=== PATIENT | male | born 1945 | race Caucasian/White ===

== ENCOUNTER 2022-06-16 17:57 | Emergency (ER) | payer MEDICARE, MEDICAID, SELFPAY ==
--- NOTE | ~2022-06-16 | XR_ITS ---
EXAMINATION: XR FOOT, LEFT CLINICAL INFORMATION: Question osteomyelitis of the lateral aspect of the left foot COMPARISON: None available TECHNIQUE: AP, lateral, and oblique views of the left foot. FINDINGS: Status post prior amputations of the first and second toes, partial amputation of the third toe to the distal portion of the proximal phalanx and partial amputation of the fourth toe to the middle phalanx. Prior partially amputation of the fifth ray to the mid metatarsal shaft. Soft tissue wound/ulcer is seen along the lateral aspect of the forefoot adjacent to the fourth MTP joint. No tracking soft tissue gas or radiodense foreign body. No aggressive osseous destruction, erosions, or periostitis to suggest a advanced acute osteomyelitis via plain radiography. Normal alignment of the tarsometatarsal joints. No acute fracture or dislocation. Vascular calcifications noted. XR/XR foot LT 2V IMPRESSION: 1. Soft tissue wound/ulcer in the lateral aspect of the forefoot adjacent to the fourth MTP joint. No radiographic evidence of advanced acute osteomyelitis. If continued high clinical concern for osteomyelitis, suggest MRI for more sensitive assessment or alternatively radiographic follow-up. 2. Postsurgical changes of the forefoot as described.
[2022-06-16 18:10] VITALS: BP 131/67; PULSE 77; RESP 16; TEMP 37.1; O2SAT 99; BMI 31.5
[2022-06-16 18:14] LABS: Glucose, Whole Blood 225 mg/dL (60-115)
[2022-06-16 18:16] VITALS: BP 131/67; PULSE 77; RESP 16; TEMP 37.1; O2SAT 99
--- NOTE | 2022-06-16 19:07 | PC.NURSE ---
Rn took over care for pt. pt is A& O x 4 agrees to getting blood work done. biomass plant technician Yosi agreeable to obtain blood work.
--- NOTE | 2022-06-16 19:09 | ED_ITS ---
HPI - General Adult General Chief complaint: General Medical Stated complaint: HYPOGYLCEMIA Source: patient Mode of arrival: EMS Limitations: no limitations History of Present Illness HPI narrative: Patient has the emergency room home home via EMS. Patient reports living alone, has [facility] services that cm daily. Patient reports that he recently had a change to his metformin, unsure if he is taking his dose correct. EMS was called for hyperglycemia. Patient was scared because his blood glucose was 225. Patient also complaining of a foot ulcer on his left foot. Patient states that he has caretakers will do dressed changes. Related Data Allergies Allergy/AdvReac Type Severity Reaction Status Date / Time No Known Allergies Allergy Verified 06/16/22 18:08 Review of Systems Review of Systems: Constitutional : No Weight loss, No Fever, No Chills, No Night Sweats, No Fatigue, No Malaise ENT/Mouth : No Hearing loss, No Ear Pain, No Nasal Congestion, No Sinus Pain, No Hoarseness, No sore throat, No Rhinorrhea, No Swallowing Difficulty Eyes: No Eye Pain, No Swelling, No Redness, No Foreign Body, No Discharge, No Vision Changes Cardiovascular : No Chest Pain, No SOB, No Dyspnea on Exertion, No Orthopnea, No Edema, No Palpitations Respiratory : No Cough, No Sputum, No Wheezing, No Smoke Exposure, No Dyspnea Gastrointestinal : No Nausea, No Vomiting, No Diarrhea, No Constipation, No abdominal Pain, No Hematochezia, No Melena Genitourinary : no irregular bleeding, No Dysuria, No Urinary Frequency, No Hematuria, No Urinary Incontinence, No Urgency, No Flank Pain, No Urinary Flow Changes, No Hesitancy Musculoskeletal : No joint pain, No Myalgias, No Joint Swelling Skin : Complaining of a nonhealing ulcer on the left foot Neuro : No Weakness, No Numbness, No Paresthesias, No Loss of Consciousness, No Dizziness, No Headache Psych : No Anxiety/Panic, No Depression, No SI/HI/AH/VH, No Social Issues, Heme/Lymph: No Bruising, No Bleeding,No Lymphadenopathy Endocrine : No Polyuria, No Polydipsia, No Temperature Intolerance PMF Past Medical History Medical History (Updated 06/16/22 @ 23:42 by Yelena Hancock MD) Chronic venous stasis Type 2 diabetes mellitus Social History Social History Advance Directives: Yes Advance Directives Information Provided: No Advance Directives on File: No Physical Exam ED Vital Signs: Vital Signs - 24 hr 06/16/22 18:10 06/16/22 18:16 06/16/22 21:00 Temperature 98.8 F 98.8 F 98.6 F Pulse Rate 77 77 76 Respiratory Rate 16 16 16 Blood Pressure 131/67 131/67 124/50 L Pulse Oximetry 99 99 97 Oxygen Delivery Method Room Air Room Air Room Air 06/16/22 22:51 Temperature 98.8 F Pulse Rate 73 Respiratory Rate 16 Blood Pressure 122/66 Pulse Oximetry 97 Oxygen Delivery Method Room Air BMI result Body Mass Index 31.5 Const Other: Appearance: Alert. Oriented X3. No acute distress. Eyes: Pupils equal, round and reactive to light. ENT: Pharynx normal. Neck: Normal inspection. Neck supple. No lymph nodes noted. No crepitus CVS: Normal heart rate and rhythm. Pulses normal. Normal S1 and S2 Respiratory: No respiratory distress. Breath sounds normal. No Wheezing. No rales Abdomen: Soft and nontender. No rigidity. No distention. Skin: Skin warm and dry. See extremities below Extremities: No lower extremity edema. There is a nonhealing ulcer on the lateral aspect of the left foot. 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 No motor deficit. No sensory deficit. Moving all extremities. No slurred speech. CN 2 through 12 grossly intact Psych: calm, cooperative, normal affect Course Course Course Narrative: -patient's blood glucose 225 on arrival, patient is symptomatic -this is a nonhealing ulcer on the left side of the foot. X-rays and labs pending -patient states that he absolutely refuses to go to any detention facility -sign out given to Dr. Franco Medical Decision Making Medical Decision Making [facility] Narrative: -patient's point of care 182 without any treatment. -patient is confused about taking his medications, states he does not have enough care at home. -patient concerned that at this time, 23:40, he does not have anyone to help him at home -patient will stay in the ED, case management consult pending tomorrow -physician observation started at 23:40 Differential Diagnosis Differential Diagnoses: The differential diagnosis associated with the presentation includes (Hyperglycemia) Lab Data [facility] Lab Attestation statement: I reviewed the patient's lab results. 06/16/22 19:29 06/16/22 19:29 Labs: Lab Results 06/16/22 06/16/22 06/16/22 Range/Units 18:05 19:29 19:29 WBC 6.2 (4.8-10.8) X10*3/uL RBC 3.08 L (4.60-5.80) X10*6/uL Hgb 9.4 L (14.0-18.0) g/dl Hct 28.3 L (42.0-52.0) % MCV 91.9 (80.0-98.0) fL MCH 30.5 (27.0-33.0) pg MCHC 33.2 (31.0-36.0) g/dl RDW 14.6 (11.0-16.0) % Plt Count 191 (160-400) X10*3/uL MPV 8.9 L (9.4-12.4) fL Immature Gran % (Auto) 0.3 (0.0-0.4) % Neut % (Auto) 73.9 H (45-73) % Lymph % (Auto) 14.5 L (20-40) % [place] % (Auto) 11.1 H (2-11) % Eos % (Auto) 0.0 (0-4) % Baso % (Auto) 0.2 (0-2) % Lymph # (Auto) 0.9 L (1.2-4.9) X10*3/uL [place] # (Auto) 0.7 (0.1-1.2) X10*3/uL Eos # (Auto) 0.0 (0.0-0.4) X10*3/uL Baso # (Auto) 0.0 (0.0-0.2) X10*3/uL Abs Immat Gran (auto) 0.02 (0.00-0.03) X10*3/uL Absolute Neuts (auto) 4.6 (2.0-8.3) x10*3/uL Absolute Nucleated RBC 0.000 (0.0-0.012) X10*3/uL Nucleated RBC % (auto) 0.0 (0.0-0.2) /100WBC Sodium 136 (135-145) mmol/L Potassium 5.0 (3.3-5.1) mmol/L Chloride 98 (96-108) mmol/L Carbon Dioxide 30 H (22-29) mmol/L Anion Gap 13 (12-20) BUN 25 H (9-16) mg/dL Creatinine 0.96 (0.5-1.4) mg/dL Estim Creat Clear Calc 76.3 Estimated GFR > 60 POC Glucose 225 H (60-115) mg/dL Random Glucose 240 H (60-115) mg/dL Calcium 9.0 (8.4-10.2) mg/dL Total Bilirubin 0.5 (0.0-1.0) mg/dL Direct Bilirubin 0.2 (0.0-0.5) mg/dL AST 12 (5-37) U/L ALT 8 (0-40) U/L Alkaline Phosphatase 63 (39-117) U/L Total Protein 6.4 L (6.5-8.0) g/dL Albumin 3.4 L (3.5-5.0) g/dL Urine Color Urine Appearance Urine pH (5.0-9.0) Ur Specific [place] (1.005-1.025) Urine Protein (Neg-Trace) mg/dL Urine Glucose (UA) (Negative) mg/dL Urine Ketones (Negative) mg/dL Urine Blood (Negative) Urine Nitrite (Negative) Ur Leukocyte Esterase (Negative) 06/16/22 06/16/22 Range/Units 21:02 23:09 WBC (4.8-10.8) X10*3/uL RBC (4.60-5.80) X10*6/uL Hgb (14.0-18.0) g/dl Hct (42.0-52.0) % MCV (80.0-98.0) fL MCH (27.0-33.0) pg MCHC (31.0-36.0) g/dl RDW (11.0-16.0) % Plt Count (160-400) X10*3/uL MPV (9.4-12.4) fL Immature Gran % (Auto) (0.0-0.4) % Neut % (Auto) (45-73) % Lymph % (Auto) (20-40) % [place] % (Auto) (2-11) % Eos % (Auto) (0-4) % Baso % (Auto) (0-2) % Lymph # (Auto) (1.2-4.9) X10*3/uL [place] # (Auto) (0.1-1.2) X10*3/uL Eos # (Auto) (0.0-0.4) X10*3/uL Baso # (Auto) (0.0-0.2) X10*3/uL Abs Immat Gran (auto) (0.00-0.03) X10*3/uL Absolute Neuts (auto) (2.0-8.3) x10*3/uL Absolute Nucleated RBC (0.0-0.012) X10*3/uL Nucleated RBC % (auto) (0.0-0.2) /100WBC Sodium (135-145) mmol/L Potassium (3.3-5.1) mmol/L Chloride (96-108) mmol/L Carbon Dioxide (22-29) mmol/L Anion Gap (12-20) BUN (9-16) mg/dL Creatinine (0.5-1.4) mg/dL Estim Creat Clear Calc Estimated GFR POC Glucose 182 H (60-115) mg/dL Random Glucose (60-115) mg/dL Calcium (8.4-10.2) mg/dL Total Bilirubin (0.0-1.0) mg/dL Direct Bilirubin (0.0-0.5) mg/dL AST (5-37) U/L ALT (0-40) U/L Alkaline Phosphatase (39-117) U/L Total Protein (6.5-8.0) g/dL Albumin (3.5-5.0) g/dL Urine Color Yellow Urine Appearance Clear Urine pH 5.5 (5.0-9.0) Ur Specific [place] 1.015 (1.005-1.025) Urine Protein Negative (Neg-Trace) mg/dL Urine Glucose (UA) 100 H (Negative) mg/dL Urine Ketones Negative (Negative) mg/dL Urine Blood Negative (Negative) Urine Nitrite Negative (Negative) Ur Leukocyte Esterase Negative (Negative) Discharge Plan Discharge Clinical Impression: Type 2 diabetes mellitus Patient Disposition: Still a Patient
[2022-06-16 19:32] LABS: MANUAL DIFF FLAG NO
[2022-06-16 19:34] LABS: Basophils Percent Auto 0.2 % (0-2); Hematocrit 28.3 % (42.0-52.0); Hemoglobin 9.4 g/dl (14.0-18.0); Imm Gran Abs Auto 0.02 X10*3/uL (0.00-0.03); Imm Gran Pct Auto 0.3 % (0.0-0.4); Lymphocytes Absolute Auto 0.9 X10*3/uL (1.2-4.9); Lymphocytes Percent Auto 14.5 % (20-40); Mean Corpuscular HGB Conc 33.2 g/dl (31.0-36.0); Mean Corpuscular Hemoglobin 30.5 pg (27.0-33.0); Mean Corpuscular Volume 91.9 fL (80.0-98.0); Mean Platelet Volume 8.9 fL (9.4-12.4); Monocytes Absolute Auto 0.7 X10*3/uL (0.1-1.2); Monocytes Percent Auto 11.1 % (2-11); Neutrophils Absolute Auto 4.6 x10*3/uL (2.0-8.3); Neutrophils Percent Auto 73.9 % (45-73); Platelet Count 191 X10*3/uL (160-400); Red Blood Count 3.08 X10*6/uL (4.60-5.80); Red Cell Distribution Width 14.6 % (11.0-16.0); White Blood Count 6.2 X10*3/uL (4.8-10.8)
[2022-06-16 19:49] LABS: Alanine Aminotransferase 8 U/L (0-40); Albumin Level 3.4 g/dL (3.5-5.0); Alkaline Phosphatase 63 U/L (39-117); Anion Gap 13 (12-20); Aspartate Amino Transferase 12 U/L (5-37); Bilirubin Direct 0.2 mg/dL (0.0-0.5); Bilirubin Total 0.5 mg/dL (0.0-1.0); Blood Urea Nitrogen 25 mg/dL (9-16); Carbon Dioxide 30 mmol/L (22-29); Chloride 98 mmol/L (96-108); Creatinine Clr Calc Pharmacy 76.3; Estimated Glomerular Filt Rate > 60; Glucose Random 240 mg/dL (60-115); Sodium 136 mmol/L (135-145); Total Protein 6.4 g/dL (6.5-8.0)
[2022-06-16 21:00] VITALS: BP 124/50; PULSE 76; RESP 16; TEMP 37; O2SAT 97
[2022-06-16 21:26] LABS: Appearance Urine Clear; Color Urine Yellow; Glucose Urine UA 100 mg/dL (Negative); Leukocyte Esterase Urine Negative (Negative); Nitrite Urine Negative (Negative); PH 5.5 (5.0-9.0); Specific Gravity - Urine 1.015 (1.005-1.025); Urine Blood Negative (Negative); Urine Ketones Negative (Negative); Urine Protein Negative (Neg-Trace)
[2022-06-16 22:51] VITALS: BP 122/66; PULSE 73; RESP 16; TEMP 37.1; O2SAT 97
[2022-06-16 23:13] LABS: Glucose, Whole Blood 182 mg/dL (60-115)
[2022-06-17] VITALS (7 sets, daily range): BP systolic 113–135; BP diastolic 50–65; PULSE 65–82; RESP 14–18; TEMP 36.5–37.2; O2SAT 97–98
--- NOTE | 2022-06-17 08:14 | PC.NURSE ---
PT ASKING TO GO HOME. PT WAS INCONTINENT OF URINE, CHANGED AND REPOSITIONED. AWAITING BREAKFAST TRAY
[2022-06-17 09:17] LABS: Influenza A PCR NEGATIVE (Negative); Influenza B PCR NEGATIVE (Negative); Resp Syncy Virus RNA Qual PCR NEGATIVE (Negative); SARS COV2 PCR INHOUSE NEGATIVE (Negative)
[2022-06-17 10:03] LABS: Glucose, Whole Blood 127 mg/dL (60-115)
--- NOTE | 2022-06-17 10:22 | PC.NURSE ---
pt sitting up eating breakfast. repositioned
--- NOTE | 2022-06-17 10:27 | PHA.MEDREC ---
Pharmacy Consult ? Medication Reconciliation Pharmacy has completed the medication reconciliation. Patient noted he takes metformin 1000 mg bid, but also seems to be a bit confused? RX for 500 mg ER daily and last filled in December. He said he stopped Glipizide since it gave him low BG. Will make md aware of metformin difference
--- NOTE | 2022-06-17 10:30 | PHA.MEDREC ---
Pharmacy Consult ? Medication Reconciliation Pharmacy has completed the medication reconciliation. update , per list metformin 1000 mg, list from pharmacy? pt reports not taking glipizide due to low blood sugar.
[2022-06-17 13:34] LABS: Glucose, Whole Blood 135 mg/dL (60-115)
--- NOTE | 2022-06-17 13:59 | PC.NURSE ---
pt repositioned for lunch
--- NOTE | 2022-06-17 15:11 | MHC.CM.ED ---
Received case management consult overnight. Patient came to the ER due to complaints of low blood sugar. Work up essentially negative. Physical therapy eval completed. 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 Met with patient in regards to discharge planning. Patient lives alone. Patient was discharged from [facility] on 06/09 with Bonita LOZADA. Patient has some health at home. PCP verified. Copy of HCP obtained from [facility]. Patient originally not interested in returning to rehab. Wanted to return home. Patient's HCP is her niece, Lorraine. T/w spoke with Lorraine via telephone at [phone]. Lorraine conferenced patient's daughter, Julianne into the call. Both are aware physical therapy is recommending rehab again and patient is declining to go. Both Julianne and Lorraine feel patient would benefit from STR but understand patient has the capacity to make his own decisions and will agree with whatever patient decides. Lorraine is requesting T/W ask patient if he would willing to go to her house upon discharge. T/W spoke with patient. Patient continues to decline rehab. Also declines going to Lorraine's house. Attempted to notify Lorraine via telephone at [phone]. Patient will return home. Transportation arranged via [employer]. [facility] with chart. Patient, Andrey MCKEON and Cynthia JOHNS aware. Continue to monitor for d/c needs.
--- NOTE | 2022-06-17 15:22 | PC.NURSE ---
pt refusing rehab placement. he is alos unable to self transfer and used urinal independently. he is able to feed himself. his chronic left foot wound was dressed with a nonstick dsd.
--- NOTE | 2022-06-17 15:56 | PC.NURSE ---
Large BM , void approx 250ml
--- NOTE | 2022-06-17 17:03 | PC.NURSE ---
EMS HERE FOR TRANSPORT HOME PT REFUSING TO GO STATING NO ONE IS THERE TO CARE FOR HIM AT THIS TIME. AND THAT HE HAS NO MEDICATION. IT WAS OFFERED TO THE PATIENT TO STAY THE NIGHT AND READDRESS NEEDS IN THE AM. PROVIDER AND CASE MANAGEMENT AT THE BEDSIDE
--- NOTE | 2022-06-17 17:44 | PC.NURSE ---
PT WAS PLACED IN A HOSPITAL BED FOR OVERNIGHT STAY
[2022-06-17] MEDS: metFORMIN HCl ER 500 MG TAB.ER.24H 1000 MG PO (17:59)
[2022-06-17] MEDS: Finasteride 5 MG TABLET PO (18:01)
[2022-06-17] MEDS: Multivitamin TABLET 1 TAB PO (18:02)
[2022-06-17] MEDS: Thiamine HCL 100 MG TABLET PO (18:02)
[2022-06-17] MEDS: polyethylene glycoL 3350 17 GM POWD.PACK PO (18:03)
[2022-06-17 18:30] LABS: Glucose, Whole Blood 246 mg/dL (60-115)
--- NOTE | 2022-06-17 19:41 | PC.NURSE ---
assumed care of pt requesting food- diabetic diet dinner tray was not brought in was present when pt refused CT scan will CTM and confrim with provider to make sure food can be provided at this time since pt had pending imaging
--- NOTE | 2022-06-17 20:25 | PC.NURSE ---
food and drink provided
--- NOTE | 2022-06-17 20:53 | MHC.CM.ED ---
Addendum entered by Ale Eng 06/17/22 21:20: [facility] updated to expect discharge home 06/18. Will update them tomorrow with d/c time. Original Note: [facility] arrived to transport patient home with services. Pt refused transport. CM, RN and Provider with patient. Pt confused. States he won't have any help at this hour (it was 1700) and he won't have his medications. Pt refused for CM to call his niece Lorraine, saying she cares for drug addicts and cannot help him. Pt not sure where he is, thinks he is in a fci. Pt was d/c from SNF on 06/09 with services. Pt then told BLS crew to just take him home and stop at the liquor store for some tequila. ? sun downing. CM, RN and BLS crew not comfortable with transport. Cynthia JOHNS aware. CM called [facility] to assess patient services and to discuss ? sundowning. Pt has services -W-, 3 hours in the morning and 3 hours at dinner time. They assist with meal prep, housekeeping, personal care and bathing. Their services are approved by the [facility]They have been seeing patient since his previous D/C for SNF. No history in the notes of confusion or sundowning./ Pt also is active with [facility] for wound care. [facility] [place] contact [phone]. Will re-assess patient in am for discharge.[facility] will need to be called. D/C earlier in day may be more beneficial. Pt refused Head CT, saying that radiation causes cancer. CM will follow for d/c planning.
[2022-06-17] MEDS: Ferrous Sulfate 324 MG TABLET.DR PO (21:15)
[2022-06-17] MEDS: Tamsulosin HCL 0.4 MG CAPSULE PO (21:15)
[2022-06-17] MEDS: Atorvastatin Calcium 10 MG TABLET PO (21:15)
--- NOTE | 2022-06-17 21:42 | PC.NURSE ---
vs to be assessed Q12HRS per DR Hancock
--- NOTE | 2022-06-18 00:11 | PC.NURSE ---
pt denies pain, resting quietly no apparent distress
[2022-06-18 04:41] VITALS: BP 98/58; PULSE 80; RESP 18; O2SAT 98
[2022-06-18 04:47] LABS: Glucose, Whole Blood 169 mg/dL (60-115)
[2022-06-18 07:01] LABS: Glucose, Whole Blood 155 mg/dL (60-115)
--- NOTE | 2022-06-18 07:02 | PC.NURSE ---
pt oriented to self, time, situation, not place; pt was able to recall conversations he had with this nurse and hand picker where we left off on his own
[2022-06-18 08:11] VITALS: BP 106/53; PULSE 87; RESP 16; TEMP 36.7; O2SAT 98
--- NOTE | 2022-06-18 09:13 | MHC.CM.ED ---
Addendum entered by Katia Silvestre 06/18/22 12:57: Received telephone call from Jaleesa at [facility]. Jaleesa has found a way to increase patient's home care hours to 36 hours. However, finding actual staffing for patient has been difficult. The [facility] is contractecd with a home health aide agency that provides it's own staffing. Jaleesa would like to change agencies for the patient but needs to discuss it with him first. [facility] number to patient so he can call her. Original Note: Patient remains in ER. Patient evaluated by Stefania NULL. Patient wants to return home. T/W spoke with [facility] via telephone at [phone]. They are concerned patient is not safe on his feet. T/W verbalized understanding and agrees pateint is unsteady on his feet. Also explained physical therapy recommended short term rehab. Patient has the capacity to make his own decisions. [facility] verbalized understanding. Caregiver will be at patient's home at 4pm. S transport booked for 4pm. Stefania NULL aware. Continue to monitor for d/c needs.
[2022-06-18] MEDS: Multivitamin TABLET 1 TAB PO (10:18)
[2022-06-18] MEDS: Thiamine HCL 100 MG TABLET PO (10:18)
[2022-06-18] MEDS: metFORMIN HCl ER 500 MG TAB.ER.24H 1000 MG PO (10:18)
[2022-06-18] MEDS: Ferrous Sulfate 324 MG TABLET.DR PO (10:18)
[2022-06-18] MEDS: Finasteride 5 MG TABLET PO (10:19)
[2022-06-18] MEDS: polyethylene glycoL 3350 17 GM POWD.PACK PO (10:20)
[2022-06-18 13:41] LABS: Glucose, Whole Blood 219 mg/dL (60-115)
[2022-06-18 14:24] VITALS: BP 129/71; PULSE 82; RESP 16; TEMP 36.7; O2SAT 99
== END 2022-06-18 16:41 | disposition home or self-care (01) ==
PROVIDERS: Physician Assistant; Emergency Provider Emergency Medicine; PCP Nurse Practitioner Family
DX: E11.9 Type 2 diabetes mellitus without complications (principal); L97.529 Non-pressure chronic ulcer of other part of left foot with unspecified severity; Z89.422 Acquired absence of other left toe(s); Z79.84 Long term (current) use of oral hypoglycemic drugs; Z20.822 Contact with and (suspected) exposure to COVID-19; Z20.828 Contact with and (suspected) exposure to other viral communicable diseases
CPT/HCPCS: 0241U; 36415; 73620; 80048; 80076; 81003; 82947; 85025; 97162; 99284; 99285